=== PATIENT | male | born 1985 | race Caucasian/White ===

== ENCOUNTER 2019-03-06 11:04 | Emergency (ER) | payer BC, MEDICAID, OTHER ==
[~2019-03-06] VITALS: Ht 170.2 cm; Wt 77.1 kg
[~2019-03-06 11:04] MED LIST: ACET-3102 PO; ACET325T53 PO; ASCO250T5 PO; D ME PO; DICY20TA28 PO; DIPH25CA83 PO; DIPH50CA37 PO; FERR325T28 PO; FOLI-118 PO; Fluoxetine Hcl PO; Gabapentin PO; HYDR-3895 PO; [UNRECOGNIZED DRUG - CODE] PO
--- NOTE | 2019-03-06 11:08 | NUR ---
PT IS IN ROOM #1B. DR MAHMOOD EVALUATED THE PT.
[2019-03-06] MEDS ORDERED: NEOMY/BACITRA/POLYMYXIN B OINT UD PACKET TP ONE (11:13)
[2019-03-06] MEDS ORDERED: SULFAMETH/TRIMETH 800/160 MG TABLET ONE (11:14)
[2019-03-06] MEDS ORDERED: LORAZEPAM 1 MG TABLET ONE (11:15)
[2019-03-06] MEDS: NEOMY/BACITRA/POLYMYXIN B OINT UD PACKET TP ONE (11:17)
[2019-03-06] MEDS: LORAZEPAM 0.5 MG TABLET PO ONE (11:17)
[2019-03-06] MEDS: SULFAMETH/TRIMETH 800/160 MG TABLET PO ONE (11:17)
--- NOTE | 2019-03-06 11:28 | NUR ---
PT IS IN ROOM #1B. DR MAHMOOD EVALUATED THE PT.
--- NOTE | 2019-03-06 12:43 | NUR ---
PT REQUEST TO TALK TO RESIDENT INSPECTOR. RESIDENT INSPECTOR EVALUATED THE PT AND GAVE HIM REFERAL AND RESOURCES FOR DRUGS ABUSE TREATMENTS. PT WAS D/C'd FROM ER. D/C INSTRUCTIONS WERE GIVEN TO THE PT BY DR MAHMOOD AND BY RESIDENT INSPECTOR.
[2019-03-06 12:48] VITALS: BP 129/77
--- NOTE | 2019-03-06 16:02 | NUR ---
Social Work Consult: Social work consult was ordered to provide possible placement to this patient who presented in ED with substance dependence. Patient is alert and oriented x4 (able to state name, date, place, and situation) and presents laying down in hospital bed. Patient denies any hx of mental health concerns, including hx of suicidal or homicidal ideation. Per patient, he currently resides in [facility] at [address] , [place] [address]]. Patient admits to alcohol and drug abuse specifically dependence to heroin within the last 4 years. Patient reported prior residential drug treatment at [facility] [[address] [place] [address]; ] and [facility] [address] [place] [address]; ]. Patient requesting assistance securing residential drug treatment placement. Senior Research Engineer contacted the above facilities. Per [facility] and [facility], there is no bed availability to accept patient back at this time. Senior Research Engineer discussed the above with patient and provided patient with alcohol/drug treatment community based resources [facility] [ ], as well as outpatient alcohol and drug treatments. Patient accepted resources and a copy was placed in patients chart. Patient appears to have support from his family father Jeffy Wynne [[phone]] who patient states will assist him with cost of a residential drug treatment program. Pt. admits to eloping from [place] two days ago and relapsing. Pt. was calm and cooperative at discharge.
== END 2019-03-06 12:49 | disposition home or self-care (01) ==
LOC: ER 11:04
DX: L98.9 Disorder of the skin and subcutaneous tissue, unspecified (principal); B95.8 Unspecified staphylococcus as the cause of diseases classified elsewhere; F11.10 Opioid abuse, uncomplicated; F15.10 Other stimulant abuse, uncomplicated; Z88.0 Allergy status to penicillin; Z79.899 Other long term (current) drug therapy; Z79.2 Long term (current) use of antibiotics
CPT/HCPCS: A4663

== ENCOUNTER 2020-12-31 12:01 | Emergency (ER) | payer BC, MEDICAID, OTHER ==
[~2020-12-31] VITALS: Ht 175.3 cm; Wt 65.8 kg
[~2020-12-31 12:01] MED LIST changes: +ASCO250T22 PO; -ASCO250T5 PO; +DICY20TA2 PO; -DICY20TA28 PO
[2020-12-31 12:23] LABS: *BILIRUBIN,URIN NEGATIVE (NEGATIVE); *BLOOD, URINE NEGATIVE (NEGATIVE); *CLARITY,URINE SLIGHTLY CLOUDY (CLEAR); *COLOR,URINE YELLOW (YELLOW); *KETONES,URINE NEGATIVE (NEGATIVE); *UROBILINOGEN,URINE 0.2 E.U./dl (NORMAL); LEUKOCYTE ESTERASE ,URINE NEGATIVE (NEGATIVE); NITRITE, URINE NEGATIVE (NEGATIVE); UGLUCOSE NEGATIVE (NEGATIVE)
[2020-12-31] MEDS ORDERED: SUBOXONE PO (12:24)
[2020-12-31] MEDS ORDERED: ALPR2TAB2 PO (12:24)
[2020-12-31] MEDS ORDERED: QUET100T PO (12:24)
[2020-12-31 12:45] LABS: *AMPHETAMINE, URINE NEGATIVE (NEGATIVE); *CANNABINOID, URINE POSITIVE (NEGATIVE); *COCCAINE, URINE NEGATIVE (NEGATIVE); *OPIATE, URINE NEGATIVE (NEGATIVE); *PHENCYCLIDINE SCREEN,URINE NEGATIVE (NEGATIVE)
[2020-12-31 12:56] LABS: BASOPHILS % (AUTO) 0.3 % (0.0-2.0); EOSINOPHILS % (AUTO) 0.2 % (0.0-7.0); HEMATOCRIT 32.3 % (36.7-47.1); HEMOGLOBIN 10.8 g/dL (12.5-16.3); LYMPHOCYTES % (AUTO) 17.3 % (20.5-51.5); MEAN CORPUSCULAR HEMOGLOBIN 28.7 uug (23.8-33.4); MEAN CORPUSCULAR HGB CONC 33 g/dL (32.5-36.3); MEAN CORPUSCULAR VOLUME 85.9 fL (73.0-96.2); MONOCYTES # (AUTO) 0.3 K/uL (2.0-10.0); MONOCYTES % (AUTO) 4.9 % (0.0-11.0); NEUTROPHILS # (AUTO) 4.5 K/uL (1.8-8.9); NEUTROPHILS % (AUTO) 77.3 % (38.5-71.5); PLATELET COUNT (AUTO) 370 K/uL (152-348); RED BLOOD CELL COUNT(AUTO) 3.76 MIL/uL (4.06-5.63); WHITE BLOOD COUNT (AUTO) 5.8 K/uL (3.6-10.2)
[2020-12-31 13:12] LABS: ETHANOL 45 MG/DL (0-0)
[2020-12-31 13:14] LABS: CARBON DIOXIDE 24 mmol/L (21-32); CHLORIDE 101 mmol/L (98-107); CREATININE 0.9 mg/dL (0.6-1.3); GLUCOSE 113 mg/dL (74-106); POTASSIUM 3.4 mmol/L (3.5-5.1); UREA NITROGEN, BLOOD 11 mg/dL (7-18)
[2020-12-31 13:19] LABS: ALANINE AMINOTRANSFERASE 19 U/L (16-63); ALKALINE PHOSPHATASE 75 U/L (50-136); ASPARTATE AMINOTRANSFERASE 17 U/L (15-37); BILIRUBIN,DIRECT 0.1 mg/dL (0.0-0.2); BILIRUBIN,TOTAL 0.3 mg/dL (0.2-1.0); TOTAL PROTEIN, SERUM 7.1 g/dL (6.4-8.2)
[2020-12-31 13:20] LABS: ACETAMINOPHEN < 2.0 ug/mL (10-30)
[2020-12-31 15:27] LABS: BACTERIA,URINE NONE SEEN /HPF (NONE SEEN); RBC,URINE 0-3 /HPF (0-3); SQUAMOUS EPITHELIAL CELL,UR NONE SEEN /HPF (NONE SEEN); WBC,URINE 0-3 /HPF (0-3)
== END 2020-12-31 21:00 ==
LOC: ER 12:01
DX: Z02.2 Encounter for examination for admission to residential institution (principal); R45.851 Suicidal ideations; Z91.5 Personal history of self-harm; Z20.822 Contact with and (suspected) exposure to COVID-19; F32.9 Major depressive disorder, single episode, unspecified; Z79.899 Other long term (current) drug therapy; Z88.0 Allergy status to penicillin; F19.10 Other psychoactive substance abuse, uncomplicated
CPT/HCPCS: 36415; 85025; A4663; G0480

== ENCOUNTER 2021-01-19 20:43 | Emergency (ER) | payer MEDICAID ==
[~2021-01-19] VITALS: Ht 175.3 cm; Wt 72.6 kg
[~2021-01-19 20:43] MED LIST changes: -ACET-3102 PO; -ACET325T53 PO; +ALPR2TAB2 PO; -ASCO250T22 PO; -D ME PO; -DICY20TA2 PO; -DIPH25CA83 PO; -DIPH50CA37 PO; -FERR325T28 PO; -FOLI-118 PO; -Fluoxetine Hcl PO; -Gabapentin PO; -HYDR-3895 PO; +QUET100T PO; +SUBOXONE PO; -[UNRECOGNIZED DRUG - CODE] PO
--- NOTE | 2021-01-19 21:41 | NUR ---
Patient is cooperative, calm, and actively engaging in conversation with [employer] officers in the room who are seated in the room monitoring another patient.
--- NOTE | 2021-01-19 22:01 | NUR ---
Patient is seated upright on hospital bed. No acute distress noted.
[2021-01-19 22:06] LABS: BASOPHILS % (AUTO) 0.5 % (0.0-2.0); EOSINOPHILS # (AUTO) 0.2 K/uL (0.0-0.7); HEMATOCRIT 35.6 % (36.7-47.1); HEMOGLOBIN 11.6 g/dL (12.5-16.3); LYMPHOCYTES # (AUTO) 2.2 K/uL (20.0-40.0); LYMPHOCYTES % (AUTO) 21.5 % (20.5-51.5); MEAN CORPUSCULAR HEMOGLOBIN 28.2 uug (23.8-33.4); MEAN CORPUSCULAR HGB CONC 33 g/dL (32.5-36.3); MEAN CORPUSCULAR VOLUME 86.3 fL (73.0-96.2); MONOCYTES # (AUTO) 0.8 K/uL (2.0-10.0); MONOCYTES % (AUTO) 7.6 % (0.0-11.0); NEUTROPHILS # (AUTO) 6.9 K/uL (1.8-8.9); NEUTROPHILS % (AUTO) 68.4 % (38.5-71.5); PLATELET COUNT (AUTO) 315 K/uL (152-348); RED BLOOD CELL COUNT(AUTO) 4.13 MIL/uL (4.06-5.63); WHITE BLOOD COUNT (AUTO) 10.1 K/uL (3.6-10.2)
[2021-01-19 22:12] LABS: CARBON DIOXIDE 26 mmol/L (21-32); CHLORIDE 100 mmol/L (98-107); CREATININE 1.2 mg/dL (0.6-1.3); GLUCOSE 141 mg/dL (74-106); POTASSIUM 3.6 mmol/L (3.5-5.1); UREA NITROGEN, BLOOD 21 mg/dL (7-18)
[2021-01-19 22:18] LABS: ALANINE AMINOTRANSFERASE 42 U/L (16-63); ALKALINE PHOSPHATASE 86 U/L (50-136); ASPARTATE AMINOTRANSFERASE 36 U/L (15-37); BILIRUBIN,DIRECT 0.1 mg/dL (0.0-0.2); BILIRUBIN,TOTAL 0.4 mg/dL (0.2-1.0); TOTAL PROTEIN, SERUM 8.2 g/dL (6.4-8.2)
[2021-01-19 22:20] LABS: *CLARITY,URINE CLEAR (CLEAR); *COLOR,URINE YELLOW (YELLOW)
[2021-01-19 22:21] LABS: *BILIRUBIN,URIN NEGATIVE (NEGATIVE); *BLOOD, URINE NEGATIVE (NEGATIVE); *KETONES,URINE NEGATIVE (NEGATIVE); *UROBILINOGEN,URINE 0.2 E.U./dl (NORMAL); LEUKOCYTE ESTERASE ,URINE NEGATIVE (NEGATIVE); NITRITE, URINE NEGATIVE (NEGATIVE); UGLUCOSE NEGATIVE (NEGATIVE)
[2021-01-19 22:28] LABS: ACETAMINOPHEN < 2.0 ug/mL (10-30)
[2021-01-19 22:31] LABS: *AMPHETAMINE, URINE POSITIVE (NEGATIVE); *CANNABINOID, URINE POSITIVE (NEGATIVE); *COCCAINE, URINE POSITIVE (NEGATIVE); *OPIATE, URINE NEGATIVE (NEGATIVE); *PHENCYCLIDINE SCREEN,URINE NEGATIVE (NEGATIVE)
[2021-01-19 22:35] LABS: ETHANOL < 3 MG/DL (0-0)
--- NOTE | 2021-01-19 22:50 | NUR ---
No 1:1 sitter available yet. Nursing supervisor sheet manufacturing will check for any potential sitters.
--- NOTE | 2021-01-19 23:15 | NUR ---
Faxed clinical to [facility] . Waiting for call back.
--- NOTE | 2021-01-20 00:03 | NUR ---
Patient given food to eat, and water to drink. Patient is pleasant, cooperative, and polite.
--- NOTE | 2021-01-20 01:07 | NUR ---
Called [facility] intake , Spoke to Angelika who states they recieved clinicals and is under review. Angelika will call back with bed info.
--- NOTE | 2021-01-20 01:39 | NUR ---
Patient resting upright on bed, no acute distress noted at this time.
--- NOTE | 2021-01-20 02:42 | NUR ---
marketing and outreach coordinator Art called back from [facility] with the following information: Physicians for patient: Psychiatrist Abdullahi/MD Terrell [facility] address: [address] [place] [address] [phone]. [phone] report to give report to nurse
--- NOTE | 2021-01-20 02:55 | NUR ---
Report given to IRENE Bishop patient will be going to [facility] with room number pending.
--- NOTE | 2021-01-20 03:06 | NUR ---
[facility] called. Dispatcher [facility] ETA for unit will be 04:15am-04:30am.
--- NOTE | 2021-01-20 03:24 | NUR ---
IRENE Bishop called back to state patient will be going to [facility] room 623A.
--- NOTE | 2021-01-20 03:44 | NUR ---
Patient is sleeping on bed, eyes closed. No acute distress noted.
--- NOTE | 2021-01-20 04:32 | NUR ---
Patient Tranfers to outside Facility via [facility] BLS unit Physician: Psychiatrist Abdullahi/MD Terrell Location: [facility]; Room 623A
== END 2021-01-20 04:32 ==
LOC: ER 20:45
DX: R45.851 Suicidal ideations (principal); F32.9 Major depressive disorder, single episode, unspecified; F41.9 Anxiety disorder, unspecified; Z20.822 Contact with and (suspected) exposure to COVID-19; Z88.0 Allergy status to penicillin; F19.10 Other psychoactive substance abuse, uncomplicated; Z79.899 Other long term (current) drug therapy; R03.0 Elevated blood-pressure reading, without diagnosis of hypertension
CPT/HCPCS: 36415; 85025; A4663; G0480